=== PATIENT | female | born 1965 | race Caucasian/White ===

== ENCOUNTER 2018-07-27 18:09 | Emergency (ER) | payer MEDICAID, OTHER ==
[~2018-07-27] VITALS: Ht 167.6 cm; Wt 96.2 kg
[2018-07-27] MEDS ORDERED: clindamycin 150mg capsule PO ONE (20:30)
--- NOTE | 2018-07-27 20:33 | NUR ---
PT AMB WITH STEADY GAIT TO MAIN ER FOR VISUAL ACUITY, PT C/O "PRESSURE BEHIND MY EYE" X2 DAYS, +BLURRY VISION, RED, SWELLING, PT WAITING TO BE REEVALUATED
[2018-07-27] MEDS ORDERED: ERYT1OIN6 RIGHTEYE (21:08)
[2018-07-27] MEDS ORDERED: CLIN150C2 PO (21:08)
[2018-07-27 21:26] VITALS: BP 158/97
== END 2018-07-27 21:27 | disposition home or self-care (01) ==
LOC: ER 18:10
DX: L03.213 Periorbital cellulitis (principal); Z88.0 Allergy status to penicillin
CPT/HCPCS: 70480; 99284

== ENCOUNTER 2024-01-30 15:32 | Emergency (ER) | payer MEDICAID, OTHER ==
[~2024-01-30] VITALS: Ht 167.6 cm; Wt 109.0 kg
[2024-01-30 15:39] VITALS: TEMP 97.9
[2024-01-30] MEDS: LIDOcaine 1% W/epiNEPHrine 1:100,000 20ml vial SQ ONE ×2 (16:18→16:48)
[2024-01-30] MEDS: morphine 4 MG/ML inj SYRINge IV ONE (16:29)
[2024-01-30] MEDS: ondansetron/PF 4mg/2ml inj IV ONE (16:29)
[2024-01-30] MEDS: LIDOcaine 1% (10mg/ml)w/preservative inj. 20ml MDV SQ ONE (16:48)
[2024-01-30] MEDS: fentaNYL/PF 50MCG/1 ML 2ML syringe IV ONE (16:56)
[2024-01-30] MEDS ORDERED: AMOX-117 PO (17:51)
[2024-01-30] MEDS ORDERED: HYDR-3965 PO (17:51)
[2024-01-30] MEDS: ampicill/sulbac 1.5gm/NS 100ml 100 ML IV SCH (17:58)
[2024-01-30] MEDS: HYDROmorphone 1 mg/ml syringe IV ONE (17:59)
[2024-01-30] MEDS ORDERED: DOXY-460 PO (18:13)
[2024-01-30 18:42] VITALS: BP 145/89; PULSE 98; RESP 18; O2SAT 98
== END 2024-01-30 18:47 | disposition home or self-care (01) ==
LOC: ER 15:33
DX: S81.852A Open bite, left lower leg, initial encounter (principal); Z88.0 Allergy status to penicillin; W54.0XXA Bitten by dog, initial encounter; Y93.89 Activity, other specified; Y92.89 Other specified places as the place of occurrence of the external cause; Y99.8 Other external cause status
CPT/HCPCS: 12004; 73590; 96374; 96375; 99284; A6223; J1171; J2270; J2405; J3010; J7030; A6258; A6446; A6449

== ENCOUNTER 2024-03-01 00:20 | Emergency (ER) | payer MEDICAID ==
[~2024-03-01] VITALS: Ht 167.6 cm; Wt 110.0 kg
[~2024-03-01 00:20] MED LIST: HYDR-3965 PO
[2024-03-01] MEDS ORDERED: SULF1TAB49 PO (01:39)
[2024-03-01] MEDS: sulfamethoxazole/trimethoprim DS (800/160mg) tablet PO ONE (01:52)
[2024-03-01] MEDS: bacitracin ointment unit dose packet TP ONE (02:00)
[2024-03-01] MEDS: bacitracin 15gm ointment TP ONE (02:06)
[2024-03-01 02:25] VITALS: BP 131/74; PULSE 89; RESP 16; TEMP 98; O2SAT 97
== END 2024-03-01 02:10 | disposition home or self-care (01) ==
LOC: ER 00:20
DX: S81.852D Open bite, left lower leg, subsequent encounter (principal); Z88.0 Allergy status to penicillin; W54.0XXD Bitten by dog, subsequent encounter
CPT/HCPCS: 99283; A6258; A6446; A6449

== ENCOUNTER 2024-04-13 00:25 | Emergency (ER) | payer MEDICAID ==
[~2024-04-13] VITALS: Ht 167.6 cm; Wt 104.8 kg
[2024-04-13] MEDS ORDERED: POTA-207 PO (01:17)
[2024-04-13] MEDS ORDERED: CEPH-585 PO (01:17)
[2024-04-13] MEDS ORDERED: FURO-150 PO (01:17)
[2024-04-13] MEDS ORDERED: SULF1TAB45 PO (01:17)
[2024-04-13 01:24] LABS: BASOPHILS # (AUTO) 0.1 X10'3 (0-0.2); BASOPHILS % (AUTO) 0.8 % (0-1); EOSINOPHILS # (AUTO) 0.3 X10'3 (0-0.9); EOSINOPHILS % (AUTO) 2.8 % (0-6); HEMATOCRIT 41.8 % (35.0-45.0); HEMOGLOBIN 13.9 g/dl (12.0-16.0); LYMPHOCYTES # (AUTO) 4.4 X10'3 (1.1-4.8); LYMPHOCYTES % (AUTO) 39.3 % (21-51); MEAN CORPUSCULAR HEMOGLOBIN 27.7 PG (27.0-31.0); MEAN CORPUSCULAR HGB CONC 33.2 g/dL (33.0-36.5); MEAN CORPUSCULAR VOLUME 83.5 FL (78-98); MEAN PLATELET VOLUME 7.1 FL (7.4-10.4); MONOCYTES # (AUTO) 0.8 X10'3 (0-0.9); MONOCYTES % (AUTO) 6.9 % (2-12); NEUTROPHILS # (AUTO) 5.6 X10'3 (1.8-7.7); NEUTROPHILS % (AUTO) 50.2 % (42-75); PLATELET COUNT 338 X10'3 (140-440); RED BLOOD COUNT 5.01 X10'6 (4.20-5.60); RED CELL DISTRIBUTION WIDTH 16.2 % (11.5-14.5); WHITE BLOOD COUNT 11.2 X10'3 (4.5-11.0)
[2024-04-13 01:30] LABS: ALBUMIN 3.3 G/DL (3.4-5.0); ANION GAP 7 (8-16); BLOOD UREA NITROGEN 10 MG/DL (7-18); BUN/CREATININE RATIO 12.2 (10.0-20.0); CHLORIDE 106 MMOL/L (99-107); CREATININE 0.82 MG/DL (0.40-0.90); GLUCOSE 146 MG/DL (70-104); SODIUM 142 MMOL/L (135-145); eCRCL 71 ML/MIN; eGFR 72 ML/MIN
[2024-04-13] MEDS: sulfamethoxazole/trimethoprim DS (800/160mg) tablet PO ONE (02:36)
[2024-04-13] MEDS: cephalexin 250mg capsule PO ONE (02:36)
[2024-04-13 03:10] VITALS: PULSE 92
[2024-04-13 03:29] VITALS: BP 134/84; RESP 18; TEMP 98.6; O2SAT 100
== END 2024-04-13 03:31 | disposition home or self-care (01) ==
LOC: ER 00:25
DX: L03.116 Cellulitis of left lower limb (principal); R60.1 Generalized edema; F17.210 Nicotine dependence, cigarettes, uncomplicated; Z88.0 Allergy status to penicillin; Z79.899 Other long term (current) drug therapy; W54.0XXA Bitten by dog, initial encounter; Y93.89 Activity, other specified; Y92.89 Other specified places as the place of occurrence of the external cause; Y99.8 Other external cause status
CPT/HCPCS: 36415; 80048; 83605; 84145; 85025; 87040; 99283; A6449